=== PATIENT | male | born 1995 | race Caucasian/White ===

== ENCOUNTER 2017-07-05 10:00 | Emergency (ER) | payer OTHER ==
[~2017-07-05] VITALS: Ht 182.9 cm; Wt 82.0 kg
[2017-07-05 10:08] VITALS: TEMP 37; Ht 182.9 cm; Wt 82.0 kg
[2017-07-05 10:50] LABS: BASO % 0.3 %; BASO ABS # 0.02 K/uL (0-0.2); COMPLETE YES; HEMATOCRIT 44.7 % (42-52); LYMPH % 10.2 %; LYMPH ABS # 0.64 K/uL (1.2-3.4); MEAN CELL VOLUME 85.6 fL (80-100); MEAN CORPUSCULAR HEMOGLOBIN 29.5 pg (25-34); MEAN CORPUSCULAR HGB CONC 34.5 g/dl (32-36); MEAN PLATELET VOLUME 10.1 fL (7.4-10.4); MONO % 4.8 %; NEUT % 84.7 %; PLATELET COUNT 227 K/uL (130-400); RED BLOOD COUNT 5.22 M/uL (4.7-6.1); WHITE BLOOD COUNT 6.27 K/uL (4.8-10.8)
[2017-07-05 11:11] LABS: BUN/CREATININE RATIO 6.3 (10-20); CALCIUM 9.6 mg/dl (8.5-10.1); CREATININE 1.1 mg/dl (0.60-1.40); POTASSIUM 3.7 mmol/L (3.5-5.1)
[2017-07-05 11:22] LABS: ACETAMINOPHEN < 2 ug/ml (10-30); THYROID STIMULATING HORMONE 0.641 uIu/ml (0.300-4.500)
--- NOTE | 2017-07-05 12:42 | EMERGENCY ROOM VISIT NOTE ---
History Report prepared by Enzo: Treva Underwood Under the Supervision of: Dr. Bhavesh Cabrera D.O. First contact with patient: 10:04 Chief Complaint: MENTAL HEALTH EVALUATION Stated Complaint: ATTEMPTED OD LAST NIGHT History of Present Illness The patient is a 22 year old male who presents to the Emergency Room for a mental health evaluation. The patient states that he has been having thoughts of wanting to harm himself. He states, "I'm just not happy. I wanted the pain to stop." He admits to drinking alcohol last night. He gathered medications from around the house and took them in attempt to kill himself. The patient does not know what medications he took. They were not his. They belonged to his terminally ill brother. He vomited the medications after taking them. He has attempted suicide in the past. Patient does not want to go forward from his dog /brother/home as this is his comfort zone. Patient denies any other medical complaints at this time. Source of History: patient Onset: [employer] Position: other (mental health) Quality: other (suicidal) Timing: worsening Associated Symptoms: + vomiting Review of Systems See HPI for pertinent positives & negatives. A total of 10 systems reviewed and were otherwise negative. Past Medical & Surgical Medical Problems: (1) No significant past medical history Family History FH: cancer Social History Smoking Status: Unknown if Ever Smoked Alcohol Use: occasionally Marital Status: single Housing Status: lives with family Occupation Status: employed Current/Historical Medications No Active Prescriptions or Reported Meds Allergies Coded Allergies: No Known Allergies (Unverified , 07/05/17) Physical Exam Vital Signs Date Time Temp Pulse Resp B/P (MAP) Pulse Ox O2 Delivery O2 Flow Rate FiO2 07/05/17 11:26 93 18 135/79 98 Room Air 07/05/17 10:08 37.0 98 18 151/90 98 Room Air Physical Exam GENERAL: alert, sitting up in bed, tearful, disheveled, well appearing, well nourished, no distress, non-toxic EYE EXAM: normal conjunctiva, PERRL and EOM's grossly intact OROPHARYNX: no exudate, no erythema, lips, buccal mucosa, and tongue normal and mucous membranes are moist NECK: supple, no nuchal rigidity, no adenopathy, non-tender LUNGS: Clear to auscultation. Normal chest wall mechanics HEART: no murmurs, S1 normal and S2 normal ABDOMEN: abdomen soft, non-tender, normo-active bowel sounds, no masses, no rebound or guarding. BACK: Back is symmetrical on inspection and there is no deformity, no midline tenderness, no CVA tenderness. SKIN: no rashes and no bruising UPPER EXTREMITIES: upper extremities are grossly normal. LOWER EXTREMITIES: No pitting edema. NEURO EXAM: Normal sensorium, cranial nerves II-XII grossly intact, normal speech, no gross weakness of arms, no gross weakness of legs. PSYCH: Admits to a suicide attempt. Medical Decision & Procedures Laboratory Results 07/05/17 10:32 Red Blood Count 5.22, Mean Corpuscular Volume 85.6, Mean Corpuscular Hemoglobin 29.5, Mean Corpuscular Hemoglobin Concent 34.5, Mean Platelet Volume 10.1, Neutrophils (%) (Auto) 84.7, Lymphocytes (%) (Auto) 10.2, Monocytes (%) (Auto) 4.8, Eosinophils (%) (Auto) 0.0, Basophils (%) (Auto) 0.3, Neutrophils # (Auto) 5.31, Lymphocytes # (Auto) 0.64, Monocytes # (Auto) 0.30, Eosinophils # (Auto) 0.00, Basophils # (Auto) 0.02 07/05/17 10:32 Test 07/05/17 10:25 07/05/17 10:32 07/05/17 12:40 Bedside Glucose 101 mg/dl (70-99) White Blood Count 6.27 K/uL (4.8-10.8) Red Blood Count 5.22 M/uL (4.7-6.1) Hemoglobin 15.4 g/dL (14.0-18.0) Hematocrit 44.7 % (42-52) Mean Corpuscular Volume 85.6 fL (80-100) Mean Corpuscular Hemoglobin 29.5 pg (25-34) Mean Corpuscular Hemoglobin Concent 34.5 g/dl (32-36) Platelet Count 227 K/uL (130-400) Mean Platelet Volume 10.1 fL (7.4-10.4) Neutrophils (%) (Auto) 84.7 % Lymphocytes (%) (Auto) 10.2 % Monocytes (%) (Auto) 4.8 % Eosinophils (%) (Auto) 0.0 % Basophils (%) (Auto) 0.3 % Neutrophils # (Auto) 5.31 K/uL (1.4-6.5) Lymphocytes # (Auto) 0.64 K/uL (1.2-3.4) Monocytes # (Auto) 0.30 K/uL (0.11-0.59) Eosinophils # (Auto) 0.00 K/uL (0-0.5) Basophils # (Auto) 0.02 K/uL (0-0.2) RDW Standard Deviation 42.9 fL (36.4-46.3) RDW Coefficient of Variation 13.7 % (11.5-14.5) Immature Granulocyte % (Auto) 0.0 % Immature Granulocyte # (Auto) 0.00 K/uL (0.00-0.02) Anion Gap 11.0 mmol/L (3-11) Est Creatinine Clear Calc Drug Dose 114.7 ml/min Estimated GFR () 109.1 Estimated GFR (Non- 94.1 BUN/Creatinine Ratio 6.3 (10-20) Calcium Level 9.6 mg/dl (8.5-10.1) Total Bilirubin 0.6 mg/dl (0.2-1) Direct Bilirubin 0.2 mg/dl (0-0.2) Aspartate Amino Transf (AST/SGOT) 21 U/L (15-37) Alanine Aminotransferase (ALT/SGPT) 21 U/L (12-78) Alkaline Phosphatase 64 U/L (45-117) Total Protein 8.4 gm/dl (6.4-8.2) Albumin 4.7 gm/dl (3.4-5.0) Thyroid Stimulating Hormone (TSH) 0.641 uIu/ml (0.300-4.500) Salicylates Level < 1.7 mg/dl (2.8-20) Acetaminophen Level < 2 ug/ml (10-30) Ethyl Alcohol mg/dL < 3.0 mg/dl (0-3) Urine Color DK YELLOW Urine Appearance CLEAR (CLEAR) Urine pH 7.0 (4.5-7.5) Urine Specific [place] 1.028 (1.000-1.030) Urine Protein TRACE (NEG) Urine Glucose (UA) NEG (NEG) Urine Ketones 2+ (NEG) Urine Occult Blood 1+ (NEG) Urine Nitrite NEG (NEG) Urine Bilirubin NEG (NEG) Urine Urobilinogen NEG (NEG) Urine Leukocyte Esterase NEG (NEG) Urine WBC (Auto) 1-5 /hpf (0-5) Urine RBC (Auto) 10-30 /hpf (0-4) Urine Hyaline Casts (Auto) 1-5 /lpf (0-5) Urine Epithelial Cells (Auto) 10-20 /lpf (0-5) Urine Bacteria (Auto) NEG (NEG) Urine Opiates Screen NEG (NEG) Urine Methadone, Qualitative NEG (NEG) Urine Barbiturates NEG (NEG) Urine Phencyclidine (PCP) Level NEG (NEG) Ur Amphetamine/Methamphetamine NEG (NEG) MDMA (Ecstasy) Screen NEG (NEG) Urine Benzodiazepines Screen NEG (NEG) Urine Cocaine Metabolite NEG (NEG) Urine Marijuana (THC) POS (NEG) Laboratory results per my review. ECG Indication: toxicologic Rate (beats per minute): 86 Rhythm: normal sinus Findings: no ectopy, other (normal axis) ED Course ED COURSE: Vital signs were reviewed and showed normal vitals. The patients medical record was reviewed The above diagnostic studies were performed and reviewed. ED treatments and interventions as stated above. 1004: The patient was evaluated in room A7. A complete history and physical examination was performed. 1113: I reevaluated the patient and spoke with him about what happened last night. He states that his brother is terminally ill and he thinks he took all of his brother's medications. 1304: I spoke with [facility] regarding the patient's treatment plan. 1500: The patient was signed out to Dr. Pelayo at the change of shift. 1505: I updated the patient. He is resting comfortably and in agreement with the treatment plan. Medical Decision Differential diagnosis: Etiologies such as mood disorder, infection, hypoglycemia, electrolyte abnormalities, cardiac sources, intracerebral event, toxicologic, neurologic, as well as others were entertained. Patient is a 22-year-old male who presents to ER following a suicide attempt with an overdose last night. He notes he took his brother's medications. He denies any aspirin or Tylenol. Medications include Synthroid, hydrocortisone, Ultram, Zantac, per Adriano, Zofran and Bactrim. Discussed with poison control. They agree patient does not need any additional testing at this time with the exception of a TSH in one week. Aspirin salicylates were negative. QRS was normal. Patient takes no medications. Patient is resting comfortably in the ER. Patient was signed out to Dr. Marie medically stable awaiting placement following the signing of a 201. Medication Reconcilliation Current Medication List: was personally reviewed by me Blood Pressure Screening Patient's blood pressure: Normal blood pressure Consults Time Called: 1302 Consulting Physician: [facility] Returned Call: 1304 I spoke with [facility] regarding the patient's treatment plan. Impression Primary Impression: Mood disorder Additional Impression: Suicidal overdose Scribe Attestation The scribe's documentation has been prepared under my direction and personally reviewed by me in its entirety. I confirm that the note above accurately reflects all work, treatment, procedures, and medical decision making performed by me. Departure Information Dispostion Still a Patient Prescriptions No Active Prescriptions or Reported Meds Referrals No Doctor, Assigned (PCP) Patient Instructions My [facility] Problem Qualifiers Additional Impression: Suicidal overdose Encounter type: initial encounter Qualified Codes: T50.902A - Poisoning by unspecified drugs, medicaments and biological substances, intentional self-harm , initial encounter
[2017-07-05 12:53] LABS: URINE APPEARANCE CLEAR (CLEAR); URINE BILIRUBIN NEG (NEG); URINE COLOR DK YELLOW; URINE NITRITE NEG (NEG); URINE SPECIFIC GRAVITY 1.028 (1.000-1.030); UROBILINOGEN NEG (NEG)
[2017-07-05 12:55] LABS: MANUAL MICROSCOPIC REQUIRED? NO; REVIEW REQ? NO
[2017-07-05 13:18] LABS: BENZODIAZEPINE, URINE NEG (NEG); COCAINE,URINE NEG (NEG); PHENCYCLIDINE, URINE NEG (NEG)
--- NOTE | 2017-07-05 15:21 | EMERGENCY ROOM VISIT NOTE ---
ED Visit Note First contact with patient: 15:20 The patient was taken in signout from Dr. Cabrera at the change of shift. Please see that note for details. The patient was pending bed placement on a 201. The patient was accepted at [facility]. He was transferred via [facility].
[2017-07-05 20:10] VITALS: BP 138/78; PULSE 99; O2SAT 99
== END 2017-07-05 20:10 ==
LOC: C.EDB 10:01 → C.EDA 20:10
DX: F39 Unspecified mood [affective] disorder (principal); T50.902A Poisoning by unspecified drugs, medicaments and biological substances, intentional self-harm, initial encounter